=== PATIENT | female | born 2000 | race Caucasian/White ===

== ENCOUNTER 2023-04-14 16:23 | Outpatient (AMB) | payer OTHER, SELFPAY ==
[2023-04-14 16:27] VITALS: BP 122/76; PULSE 94; RESP 16; TEMP 36.6; O2SAT 99; BMI 28.0
--- NOTE | 2023-04-14 16:27 | A.OFFPC_ITS ---
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 of bipolar Intake Note: Patient is a new patient, and she has a question of bipolar, did take meds, then stopped, because it made her foggy, and the beginning of Covid, unable to communicate with her doctor. Is last menstrual period known: No (depo shot) Allergies No Known Allergies [No Known Allergies*] Allergy (Verified 04/14/23 17:07) Medication List - Last Reconciled 04/14/23 by Brittany Kwong CNP medroxyprogesterone 150 mg IM [id number] Dental Screening Did you have a dental visit in the last 12 months?: No Did you have a dental problem in the last 6 months where you did not have access to dental care?: No Was dental information given to patient?: No HPI HPI Comments History of Present Illness Details 22-year-old female presents to [facility] care She notes she was last seen by her former PCP 3 years ago. She does not recall the last time she had blood work done She reports PMH significant for anxiety, depression, and bipolar 2. She notes she was on a medication for bipolar for 1-2 months 2-3 years which she abruptly stopped taking due to feeling of brain fog. She notes SSRI such as fluoxetine and sertraline were ineffective in the past. She states that she was followed by a therapist until 2018. She requests assistance to connect to a therapist. She notes that she started exercising 2 weeks ago. Reports history of suicide ideation. She denies current SI/HI and contracts for safety. [facility] Medical History (Updated 04/14/23 @ 17:36 by Brittany Kwong CNP) Suicidal ideation Surgical History (Updated 08/04/20 @ 06:35 by RODGER Jolly) History of lymph node excision Family History Father No problems noted. Mother No problems noted. Maternal Grandmother Depression Cancer Chronic mental illness Maternal Uncle Depression Brother Depression Social anxiety disorder Social History Housing: Apartment Patient Tobacco Use Status: Former Tobacco user e-Cigarette/Vaping Use: Currently Using service: No Current occupational status: unemployed Current occupation: looking for a new job. Cognitive needs: No Hearing needs: No Vision needs: No Questionnaire PHQ-9 Over the last 2 weeks, how often have you been bothered by any of the following problems? 1. Little interest or pleasure in doing things: nearly every day 2. Feeling down, depressed, or hopeless: nearly every day 3. Trouble falling or staying asleep, or sleeping too much: nearly every day 4. Feeling tired or having little energy: nearly every day 5. Poor appetite or overeating: nearly every day 6. Feeling bad about yourself - or that you are a failure or have let yourself or your family down: nearly every day 7. Trouble concentrating on things, such as reading the newspaper or watching television: nearly every day 8. Moving or speaking so slowly that other people could have noticed. Or the opposite - being so fidgety or restless that you have been moving around a lot more than usual: nearly every day 9. Thoughts that you would be better off or of hurting yourself in some way: not at all Total score: 24 Depression Screening Interpretation: Positive Depression Screening Follow-up: Existing condition, New Medication prescribed and Community Mental Health Worker F/U Source: Developed by Drs. Jhon Connelly, Candace Jacinto, Armen Torres and colleagues, with an educational tami from [employer]. Thrive Questionnaire I am a: Patient What is your living situation today?: I have a steady place to live Within the past 12 months, did the food you bought not last and you didn't have the money to get more?: Never true Within the past 12 months, did you worry whether your food would run out before you got money to buy more?: Never true Do you have trouble paying for medicines?: No Do you have trouble getting transportation to medical appointments?: No Do you have trouble paying your heating and electricity bill?: No Do you have trouble taking care of your child, family member or friend?: No Do you have trouble with day-to-day activities such as bathing, preparing meals, shopping, managing finances, etc.?: Yes Are you currently unemployed and looking for a job?: Yes Are you interested in more education?: Yes AUDIT C Alcohol Use Questionnaire (AUDIT-C) 1. How often do you have a drink containing alcohol?: 4 or more times a week 2. How many drinks containing alcohol do you have on a typical day when you are drinking?: 1 or 2 3. How often do you have six or more drinks on one occasion?: Never Total Score: 4 AIDEN-7 AMB Questionnaire AIDEN-7 Date AIDEN - 7 assessed: 04/14/23 Feeling nervous, anxious, or on edge: 3 = Nearly every day Not being able to stop or control worryin = Nearly every day Worrying too much about different things: 3 = Nearly every day Trouble relaxin = More than half the days Being so restless that it is hard to sit still: 3 = Nearly every day Becoming easily annoyed or irritable: 3 = Nearly every day Feeling afraid as if something awful might happen: 3 = Nearly every day Total AIDEN-7 score (0-4 normal; 5-9 mild; 10-14 moderate; 15-21 severe): 20 Source: Developed by Drs. Jhon Connelly, Candace Jacinto, Armen Torrse and colleagues, with an educational tami from [employer]. Review of Systems Const Details: Const Denies chills, Denies fatigue, Denies fever(s), Denies headache(s) and Denies weakness ENT Denies dizziness and Denies headache(s) Card Denies chest pain, Denies lightheadedness, Denies dyspnea and Denies other (Palpitations) Resp Denies cough, Denies dyspnea, Denies wheezing and Denies other ( shortness of breath) GI Denies abdominal pain, Denies melena, Denies hematochezia, Denies change in bowel habits, Denies dyspepsia and Denies nausea Denies hematuria and Denies dysuria Musc Denies abnormal gait, Denies myalgias, Denies arthralgias, Denies numbness and Denies tingling Skin/Breast Denies rash, Denies unusual bruising and Denies wounds Neuro Denies abnormal gait, Denies dizziness, Denies headache(s), Denies memory loss, Denies numbness, Denies Sensory deficit (Neuro), Denies tingling and Denies weakness Psych Reports anxiety, Reports depression, Denies memory loss Endo Denies cold intolerance, Denies fatigue, Denies heat intolerance, Denies polydipsia and Denies polyuria Aller/Immun Denies wheezing Physical exam (Primary Care) Vital Signs: Last Vital Signs Temp 97.8 F 04/14/23 16:27 Pulse 94 04/14/23 16:27 Resp 16 04/14/23 16:27 BP 122/76 04/14/23 16:27 Pulse Ox 99 04/14/23 16:27 Oxygen Delivery Method Room Air 04/14/23 16:27 BMI result Body Mass Index 28.0 Tobacco/Smoking Status: Tobacco use Status Patient Tobacco Use Status Former Tobacco user 04/14/23 16:33 e-Cigarette/Vaping Use Currently Using 04/14/23 16:33 PHQ-9: PHQ-9 Score PHQ-9: Total score 24 04/14/23 16:45 Depression Screening Interpretation: Positive Depression Screening Follow-up: Existing condition, New Medication prescribed and Community Mental Health Worker F/U Const Other: General: no acute distress and well developed Nutritional Appearance: well nourished Orientation/consciousness: patient oriented x3 HENMT Head: Yes normocephalic and Yes atraumatic Eyes General: appearance normal, both eyes and all related structures Pupils: Equal, round and reactive pupils present EOM: EOMs intact bilaterally Resp Effort & Inspection: normal respiratory effort Auscultation: clear to auscultation bilaterally Cardio Rate: regular rate Rhythm: regular rhythm Heart sounds: S1 normal heart sound present, S2 normal heart sound present, no gallops, no murmurs and no rubs GI Palpation (GI): No Abdominal aortic bruit present, Soft to palpation, nontender, No hepatosplenomegaly present and No Rebound tenderness present Auscultation: normal bowel sounds General: Yes no CVA tenderness Back/Spine/Pelvis Back: no CVA tenderness Cervical Spine: cervical ROM normal and No Cervical spine tenderness Thoracic/Lumbar Spine: thoraco-lumbar ROM normal, No pain with thoraco-lumbar ROM, No thoracic spinal tenderness and No lumbar spinal tenderness Extrem General: Yes normal to inspection, No edema and No calf tenderness Skin General: warm and dry. Normal skin color. Normal skin turgor Lesions: no lesions Rashes: no rashes Trauma: no lacerations or abrasions Wounds: no wounds Nails: normal Neuro General: patient oriented x3, gait normal and no focal neuro deficit Cranial nerves: Yes Equal, round and reactive pupils present Cognition (Neuro): normal cognition Gait exam (Neuro): Normal gait present Motor exam (neuro): 5/5 motor strength present throughout Sensory Exam: No Sensory deficit (Neuro) Psych Appearance: grossly normal Affect: normal affect Attitude: cooperative Thought process: Normal thought process present Assessment and Plan Assessment & Plan (1) Anxiety: Code(s): F41.9 - Anxiety disorder, unspecified Plan: PHQ-9 and AIDEN-7 scores revealed severe depression and anxiety Venlafaxine ordered. Take as prescribed Continue with routine exercise Referred made to the community navigator to assist patient connect to a therapist Follow-up in 2 weeks or return sooner with worsening or new symptoms Verbalized understanding and agreed with treatment plan. (2) Depression: Code(s): F32.A - Depression, unspecified Plan: As above (3) Bipolar II disorder: Code(s): F31.81 - Bipolar II disorder Plan: As above (4) Laboratory tests ordered as part of a complete physical exam (CPE): Code(s): Z00.00 - Encounter for general adult medical examination without abnormal fin dings Plan: Fasting labs ordered as part of a complete physical exam. Advised to fast for at least 10 hours before getting labs drawn. May drink water Verbalized understanding and agreed with treatment plan. Orders: Orders Complete Blood Count Auto Diff Today Z00.00 - Encounter for general adult medical examination without abnormal findings Comprehensive [place]. Panel Fast Today Z00.00 - Encounter for general adult medical examination without abnormal findings Lipid Panel Today Z00.00 - Encounter for general adult medical examination without abnormal findings TSH reflex Free T4 Today Z00.00 - Encounter for general adult medical examination without abnormal findings UA CC w/rflx Micro + Cult Today Z00.00 - Encounter for general adult medical examination without abnormal findings Referrals Nurse Navigator Referral F31.81 - Bipolar II disorder, F32.A - Depression, unspecified, F41.9 - Anxiety disorder, unspecified Medications: New venlafaxine 75 mg PO DAILY 30 tabs 2RF 30 days Coding Level of Care Code New Pt Level 3 (99098) Diagnoses Anxiety F41.9 Depression F32.A Bipolar II disorder F31.81 Laboratory tests ordered as part of a complete physical exam (CPE) Z00.00 Time Spent (min) 35
== END 2023-04-14 17:26 | disposition home or self-care (01) ==
PROVIDERS: Visit Provider Nurse Practitioner Family
DX: F41.9 Anxiety disorder, unspecified (principal); F31.81 Bipolar II disorder; Z00.00 Encounter for general adult medical examination without abnormal findings
CPT/HCPCS: 99203